=== PATIENT | female | born 1985 | race American Indian/Alaskan Native ===

== ENCOUNTER → 2021-11-14 13:02 | Outpatient (CLI) | payer MEDICAID, OTHER, SELFPAY ==
--- NOTE | 2021-11-14 13:10 | DI.RAD.S_ITS ---
PROCEDURE: XR LUMBAR SPINE 2-3V INDICATIONS: Strain of muscle, fascia and tendon of lower back, initial e TECHNIQUE: 3 views of the lumbar spine were acquired. COMPARISON: [facility], , L-SPINE 2-3 VIEWS, 01/14/2015, 14:39. FINDINGS: Bones: 5 [id number] vertebrae are present. Bilateral pars defects are noted at L5 level with 1.5 cm anterolisthesis of L5 on S1. Degenerative endplate changes are seen at L5-S1 level. No vertebral body compression fractures. No suspicious bony lesions. Soft tissues: Overlying bowel gas pattern is normal. No suspicious soft tissue calcifications. IMPRESSION: Bilateral pars defect at L5 level with 1.5 cm anterolisthesis of L5 on S1. No acute compression fracture. Degenerative disc disease at L5-S1 level. Dictated by: Kamaljit Melendez M.D. on 11/14/2021 at 15:00 Approved by: Kamaljit Melendez M.D. on 11/14/2021 at 15:01
--- NOTE | 2021-11-14 13:10 | DI.RAD.S_ITS ---
PROCEDURE: XR HIP W PEL IF DONE LT 2V INDICATIONS: Strain of muscle, fascia and tendon of lower back, initial e TECHNIQUE: AP pelvis with lateral view(s) of the left hip(s). COMPARISON: None. FINDINGS: Bones: No fractures or dislocations. Pelvic ring appears intact. No suspicious bony lesions. Soft tissues: The visualized bowel gas pattern is normal. No suspicious soft tissue calcifications. IMPRESSION: No hip fracture or dislocation. No evidence of avascular necrosis of femoral head. Dictated by: Kamaljit Melendez M.D. on 11/14/2021 at 14:51 Approved by: Kamaljit Melendez M.D. on 11/14/2021 at 15:00
--- NOTE | 2021-11-14 13:13 | DI.RAD.S_ITS ---
PROCEDURE: XR KNEE RT 3V INDICATIONS: STANDING BILATERAL TECHNIQUE: 3 views of the knee were acquired. COMPARISON: Located [facility], CR, XR KNEE LT 3V, 11/14/2021, 13:18. FINDINGS: Bones: No fractures or dislocations. No suspicious bony lesions. Soft tissues: Question knee joint effusion. No suspicious soft tissue calcifications. IMPRESSION: 1. No acute osseous abnormalities. 2. Question knee joint effusion. 3. If there is high clinical suspicion for internal derangement, MRI would be helpful. Dictated by: Livier Jenkins M.D. on 11/14/2021 at 16:53 Approved by: Livier Jenkins M.D. on 11/14/2021 at 16:54
--- NOTE | 2021-11-14 13:13 | DI.RAD.S_ITS ---
PROCEDURE: XR KNEE LT 3V INDICATIONS: STANDING BILATERAL TECHNIQUE: 3 views of the knee were acquired. COMPARISON: [facility], CR, XR KNEE RT 3V, 11/14/2021, 13:18. FINDINGS: Bones: No fractures or dislocations. No suspicious bony lesions. Soft tissues: No joint effusion. No suspicious soft tissue calcifications. IMPRESSION: No acute osseous abnormalities. If there is high clinical suspicion for internal derangement, MRI may be helpful. Dictated by: Livier Jenkins M.D. on 11/14/2021 at 16:57 Approved by: Livier Jenkins M.D. on 11/14/2021 at 16:58
== END ==
PROVIDERS: PCP Family Medicine; Referring Provider Family Medicine; Visit Provider Family Medicine
DX: S39.012A Strain of muscle, fascia and tendon of lower back, initial encounter (principal); M43.17 Spondylolisthesis, lumbosacral region; M51.37 Other intervertebral disc degeneration, lumbosacral region; M25.552 Pain in left hip; M25.561 Pain in right knee
CPT/HCPCS: 72100; 73502; 73562

== ENCOUNTER 2023-04-23 00:21 | Emergency (ER) | payer OTHER, SELFPAY ==
--- NOTE | 2023-04-23 00:23 | DI.RAD.S_ITS ---
PROCEDURE: XR CHEST 1V INDICATIONS: Coughing congestion eval for pneumonia TECHNIQUE: One view of the chest was acquired. COMPARISON: [facility], CHEST 2 VIEW, 05/31/2011, 18:29. [facility], CHEST 2 VIEW, 03/07/2009, 20:31. FINDINGS: Surgical changes and devices: None. Lungs and pleura: Lungs are clear. No pleural effusions or pneumothorax. Mediastinum: Mediastinal contours appear normal. Heart size is normal. Bones and chest wall: No suspicious bony lesions. Overlying soft tissues appear unremarkable. IMPRESSION: No acute cardiopulmonary abnormality is seen. Dictated by: Elia Juan M.D. on 04/23/2023 at 0:37 Approved by: Elia Juan M.D. on 04/23/2023 at 0:38
[2023-04-23 00:33] VITALS: BP 127/82; PULSE 96; O2SAT 99
[2023-04-23 00:36] VITALS: BP 127/82; PULSE 97; RESP 22; TEMP 37.1; O2SAT 99
--- NOTE | 2023-04-23 00:45 | ED.GENADULT ---
HPI - General Adult General Chief complaint: Upper Respiratory Symptoms Stated complaint: Not feeling well, cough, congestion Time Seen by Provider: 04/23/23 00:23 Source: patient Mode of arrival: Ambulatory History of Present Illness HPI narrative: Patient is a 37-year-old female who is here for evaluation of just over 24 hours of not feeling well, cough, congestion, shortness of breath, headache. Also having fevers. Has tried some [id number]-[id number] medications at home. No skin rashes. No nausea or vomiting. She was also having a sore throat. Related Data Allergies Allergy/AdvReac Type Severity Reaction Status Date / Time iodine [IODINE] Allergy Intermediate Hives Verified 04/23/23 00:44 tramadol Allergy Intermediate Hives Verified 04/23/23 00:44 Review of Systems Constitutional Constitutional: Reports system reviewed and no additional complaints, except as documented ENT Ears, Nose, Mouth, and Throat: Reports system reviewed and no additional complaints, except as documented Respiratory Respiratory: Reports system reviewed and no additional complaints, except as documented Integumentary/Breasts Skin/Breast: Reports system reviewed and no additional complaints, except as documented Hematologic/Lymphatic On Anticoagulants: No Patient History Social History Smoking Status: Current every day smoker Tobacco: How many years used: 4 alcohol intake: former (quit 2020 ) substance use type: does not use Smoking Status: Current every day smoker alcohol intake frequency: 0-2 drinks per day Substance Use Type: does not use Exam Initial Vital Signs Initial Vital Signs: Vital Signs Temperature 98.7 F 04/23/23 00:36 Pulse Rate 97 H 04/23/23 00:36 Respiratory Rate 22 04/23/23 00:36 Blood Pressure 127/82 04/23/23 00:36 Pulse Oximetry 99 04/23/23 00:36 Oxygen Delivery Method Room Air 04/23/23 00:36 HENMT Head: normal to inspection and normocephalic Mouth: moist mucous membranes Throat: posterior oropharynx normal Resp Effort & Inspection: normal respiratory effort Auscultation: clear to auscultation bilaterally Cardio Rate: regular rate Rhythm: regular rhythm GI Inspection: normal to inspection Skin General: no rashes or lesions noted Neuro General: patient alert, patient awake and moves all extremities Course Orders Ordered: ED Orders 04/23/23 00:23 XR chest 1V Stat 04/23/23 00:32 Covid-19 + FLU A/B + RSV - PCR Stat Discontinued Medications Ibuprofen (Ibuprofen 400 Mg Tablet) 800 mg PO NOW ONE Stop: 04/23/23 00:46 Last Admin: 04/23/23 00:49 Dose: 800 mg Documented By: YON Vital Signs Vital signs: Vital Signs - 8 hr 04/23/23 00:36 Temperature 98.7 F Pulse Rate 97 H Respiratory Rate 22 Blood Pressure 127/82 Pulse Oximetry 99 Oxygen Delivery Method Room Air Medical Decision Making Lab Data Lab results reviewed: Yes I reviewed the patient's lab results. Labs: Lab Results 04/23/23 Range/Units 00:32 SARS-CoV-2 (PCR) Negative (Negative) Influenza A (RT-PCR) Flu a positive H (NEGATIVE) Influenza B (RT-PCR) Flu b negative (NEGATIVE) RSV (PCR) Negative (Negative) Imaging Data Chest x-ray: Radiologist's Impression: PROCEDURE: XR CHEST 1V INDICATIONS: Coughing congestion eval for pneumonia TECHNIQUE: One view of the chest was acquired. COMPARISON: [facility], CHEST 2 VIEW, 05/31/2011, 18:29. [facility], CHEST 2 VIEW, 03/07/2009, 20:31. FINDINGS: Surgical changes and devices: None. Lungs and pleura: Lungs are clear. No pleural effusions or pneumothorax. Mediastinum: Mediastinal contours appear normal. Heart size is normal. Bones and chest wall: No suspicious bony lesions. Overlying soft tissues appear unremarkable. IMPRESSION: No acute cardiopulmonary abnormality is seen. MDM Narrative Medical decision making narrative: Patient is influenza positive. This does explain the symptoms that she is having today. No indication for antibiotics. Chest x-ray is unremarkable. No indication for admission to the hospital. Not hypoxic. Will discharge patient home with return precautions. She expressed und Discharge Plan Departure Patient Disposition: Home Clinical Impression: Influenza Instructions: DI for Influenza -- Adult Activity Restrictions/Additional Instructions: Recommend that you increase your fluid intake. Be sure that you were taking Tylenol/ibuprofen for fevers or body aches. Return to the emergency department for new symptoms Referrals: Juany Cartagena DO [Primary Care Provider] - Stand Alone Forms: Patient Portal/API, Work Release Note
[2023-04-23] MEDS: IBUPROFEN 400 MG TABLET 800 MG PO (00:49)
[2023-04-23 01:00] VITALS: BP 120/59; PULSE 97; O2SAT 96
[2023-04-23 01:18] LABS: Influenza A - CEPHEID Flu A POSITIVE (NEGATIVE); Influenza B - CEPHEID Flu B NEGATIVE (NEGATIVE); Respiratory Syncytial Virus Negative (Negative)
[2023-04-23 01:25] LABS: COVID-19 CEPHEID 4-PLEX PCR Negative (Negative)
[2023-04-23 01:30] VITALS: BP 130/73; PULSE 90; O2SAT 95
== END 2023-04-23 01:43 | disposition home or self-care (01) ==
PROVIDERS: Emergency Provider Emergency Medicine; PCP Family Medicine
DX: J10.1 Influenza due to other identified influenza virus with other respiratory manifestations (principal); Z20.822 Contact with and (suspected) exposure to COVID-19
CPT/HCPCS: 0241U; 71045; 99283

== ENCOUNTER → 2023-09-29 13:15 | Outpatient (CLI) | payer OTHER, MEDICAID, SELFPAY ==
--- NOTE | 2023-09-29 13:17 | DI.MRI.S_ITS ---
PROCEDURE: MR KNEE RT WO CON INDICATIONS: Pain in right knee TECHNIQUE: Noncontrast sagittal PD fast spin echo and T2 fast spin echo with fat saturation, sagittal 3-D FLASH with fat saturation; coronal T1 spin echo and PD fast spin echo with fat saturation, and axial PD fast spin echo with fat saturation through the knee. COMPARISON: [facility], CR, XR KNEE RT 3V, 11/14/2021, 13:18. FINDINGS: Image quality: Excellent. Menisci: The medial and lateral menisci demonstrate normal morphology and internal signal. The meniscal root ligaments appear intact. Cruciate ligaments: The anterior and posterior cruciate ligaments appear intact. Medial structures: The medial collateral ligament appears intact. The semimembranosus tendon insertions and meniscocapsular junction appear intact. Visualized portions of the pes anserinus tendons appear normal. No abnormal bursal fluid. Lateral structures: The lateral collateral ligament and the biceps femoris tendon appear intact. The popliteus tendon appears normal. Iliotibial band appears normal. Anterior structures: The quadriceps and patellar tendons appear intact. This low-grade quadriceps tendinitis and patellar tendinitis. There is lateral tilt of patella. No femoral trochlear dysplasia or ventral trochlear prominence. No edema in the infrapatellar fat pad. There is nonspecific infrapatellar soft tissue swelling. Bones and cartilage: No fractures. There is mild edema in the lateral aspect of the lateral femoral trochlear. Mild cartilage thinning and fibrillation in the medial and lateral femorotibial compartments, as well as the patellofemoral compartment. Joint space: There is trace knee joint effusion. No Burr's cyst. Normal appearing synovial plicae are incidentally noted. IMPRESSION: 1. Mild quadriceps tendinitis and patellar tendinitis. 2. Early osteoarthritic changes with mild cartilage thinning and fibrillation. 3. Mild lateral tilt of patella. Mild edema in the lateral aspect of the lateral femoral trochlear Dictated by: Livier Jenkins M.D. on 09/29/2023 at 15:36 Approved by: Livier Jenkins M.D. on 09/29/2023 at 20:19
== END ==
PROVIDERS: PCP Nurse Practitioner Family; Referring Provider Family Medicine; Visit Provider Family Medicine
DX: M76.51 Patellar tendinitis, right knee (principal); M25.561 Pain in right knee; R60.0 Localized edema
CPT/HCPCS: 73721